=== PATIENT | female | born 1980 | race Caucasian/White ===

== ENCOUNTER 2017-10-24 09:32 | Emergency (ER) | payer OTHER ==
--- NOTE | 2017-10-24 10:12 | EDPHYS ---
Physician Documentation [facility] Name: Celi Ortez Age: 37 yrs Sex: Female : 1980 Arrival Date: 10/24/2017 Time: 09:40 Bed 13 Private MD: ED Physician Curtis Abreu HPI: 10/24 10:06 This 37 yrs old Female presents to ER via Ambulatory with complaints of pm1 abscess. 10:06 The patient presents with an abscess of the chest. Description: The affected area is pm1 small, draining. Onset: The symptoms/episode began/occurred this morning. Possible cause(s): unknown. Associated signs and symptoms: Pertinent positives: drainage, Pertinent negatives: fever. Modifying factors: the symptoms are alleviated by nothing, the symptoms are aggravated by touching. Severity of symptoms: in the emergency department the symptoms have improved. The patient has not experienced similar symptoms in the past. The patient has not recently seen a physician. 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 - Social history:: Smoking status: Patient uses tobacco products, smokes one pack cigarettes per day. ROS: 10:06 Constitutional: Negative for fever, chills, and weight loss, Eyes: Negative for injury, pm1 pain, redness, and discharge, ENT: Negative for injury, pain, and discharge, Neck: Negative for injury, pain, and swelling, Cardiovascular: Negative for chest pain, palpitations, and edema, Respiratory: Negative for shortness of breath, cough, wheezing, and pleuritic chest pain, Abdomen/GI: Negative for abdominal pain, nausea, vomiting, diarrhea, and constipation, Back: Negative for injury and pain, MS/Extremity: Negative for injury and deformity. 10:06 Neuro: Negative for headache, weakness, numbness, tingling, and seizure. 10:06 Skin: Positive for abscess, of the xyphoid area. Exam: 10:06 Constitutional: This is a well developed, well nourished patient who is awake, alert, pm1 and in no acute distress. Head/Face: Normocephalic, atraumatic. Chest/axilla: Normal chest wall appearance and motion. Nontender with no deformity. No lesions are appreciated. Cardiovascular: Regular rate and rhythm with a normal S1 and S2. No gallops, murmurs, or rubs. No pulse deficits. Respiratory: Lungs have equal breath sounds bilaterally, clear to auscultation and percussion. No rales, rhonchi or wheezes noted. No increased work of breathing, no retractions or nasal flaring. Abdomen/GI: Soft, non-tender, with normal bowel sounds. No distension or tympany. No guarding or rebound. No evidence of tenderness throughout. Back: No spinal tenderness. No costovertebral tenderness. Full range of motion. 10:06 Skin: Appearance: normal except for affected area, abscess, that is small, no surrounding cellulitis, pointing or fluctuance. No drainage present, cellulitis, is not appreciated. 10:06 Neuro: Orientation: is normal, Motor: moves all fours. 10:06 Skin: BB RN instructional aide. pm1 Vital Signs: 09:48 BP 144 / 70; Pulse 100; Resp 19; Temp 97.6(TE); Pulse Ox 100% on R/A; Weight 47.85 kg rb1 (R); Height 5 ft. 0 in. (152.40 cm) (R); Pain 5/10; 10:30 BP 144 / 77; Pulse 81; Resp 17; Pulse Ox 100% on R/A; rb1 09:48 Body Mass Index 20.60 (47.85 kg, 152.40 cm) rb1 MDM: 09:54 Patient medically screened. pm1 10:11 Data reviewed: vital signs. Data interpreted: Pulse oximetry: on room air is 100 %. pm1 Interpretation: normal. Counseling: I had a detailed discussion with the patient and/or guardian regarding: the historical points, exam findings, and any diagnostic results supporting the discharge/admit diagnosis, the need for outpatient follow up, to return to the emergency department if symptoms worsen or persist or if there are any questions or concerns that arise at home. 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 Exp: rb1 01/22/2020. Lot #: [id number]. } Route: IM; Site: right deltoid; Disposition: 14:03 Co-signature as Attending Physician, Curtis Abreu MD. rn Disposition: 10/24/17 10:11 Discharged to Home. Impression: Cutaneous abscess of chest wall. - Condition is Stable. - Discharge Instructions: Abscess. - Prescriptions for Diclofenac Sodium 75 mg Oral Tablet Sustained Release - take 1 tablet by ORAL route 2 times per day; 30 tablet. Bactrim DS 800- 160 mg Oral Tablet - take 1 tablet by ORAL route every 12 hours for 10 days; 20 tablet. - Medication Reconciliation Form, Thank You Letter, Antibiotic Education form. - Follow up: Emergency Department; When: As needed; Reason: Worsening of condition. Follow up: Private Physician; When: 2 - 3 days; Reason: Recheck today's complaints, Continuance of care, Re-evaluation by your physician. - Problem is new. - Symptoms have improved. Signatures: Curtis Abreu MD MD rn Phyllis Cardenas RN RN rb1 Eric Nielson, CCO & PRESIDENT CCO & PRESIDENT pm1 Corrections: (The following items were deleted from the chart) 10:34 10:11 10/24/2017 10:11 Discharged to Home. Impression: Cutaneous abscess of chest wall. rb1 Condition is Stable. Forms are Medication Reconciliation Form, Thank You Letter, Antibiotic Education, Prescription Opioid Use. Follow up: Emergency Department; When: As needed; Reason: Worsening of condition. Follow up: Private Physician; When: 2 - 3 days; Reason: Recheck today's complaints, Continuance of care, Re-evaluation by your physician. Problem is new. Symptoms have improved. pm1
--- NOTE | 2017-10-24 10:12 | ER ---
Nurse's Notes [facility] Name: Celi Ortez Age: 37 yrs Sex: Female : 1980 Arrival Date: 10/24/2017 Time: 09:40 Bed 13 Private MD: Diagnosis: Cutaneous abscess of chest wall Presentation: 10/24 09:48 Presenting complaint: Patient states: I have a knot in the crease of my right breast, rb1 I'm not sure if it is a pimple or what. This morning it popped and pus came out.". Transition of care: patient was not received from another setting of care. Onset of symptoms was October 23, 2017. Initial Sepsis Screen: Does the patient meet any 2 criteria? No. Patient's initial sepsis screen is negative. Does the patient have a suspected source of infection? No. Patient's initial sepsis screen is negative. Care prior to arrival: None. 09:48 Method Of Arrival: Ambulatory rb1 09:48 Acuity: AMY 4 rb1 Triage Assessment: 09:48 General: Appears in no apparent distress. comfortable, Behavior is calm, cooperative, rb1 Denies fever. Pain: Complains of pain in xyphoid area Pain currently is 5 out of 10 on a pain scale. Pain began 1 day ago. Neuro: Level of Consciousness is awake, alert, obeys commands, Oriented to person, place, time, situation. Cardiovascular: Capillary refill < 3 seconds is brisk in bilateral fingers. Respiratory: Airway is patent Respiratory effort is even, unlabored, Respiratory pattern is regular, symmetrical. GI: Reports diarrhea, nausea, vomiting, Pt. is going through withdrawals from synthetic. : No signs and/or symptoms were reported regarding the genitourinary system. Derm: Skin is pink, warm \\T\\ dry. looks like a pimple like lesion. 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 - Social history:: Smoking status: Patient uses tobacco products, smokes one pack cigarettes per day. Screenin:48 Abuse screen: Denies threats or abuse. Nutritional screening: No deficits noted. rb1 Tuberculosis screening: No symptoms or risk factors identified. Fall Risk None identified. Assessment: 09:48 General: See triage assessment. rb1 10:30 Reassessment: Patient appears in no apparent distress at this time. Patient and/or rb1 family updated on plan of care and expected duration. Pain level reassessed. Patient is alert, oriented x 3, equal unlabored respirations, skin warm/dry/pink. Vital Signs: 09:48 BP 144 / 70; Pulse 100; Resp 19; Temp 97.6(TE); Pulse Ox 100% on R/A; Weight 47.85 kg rb1 (R); Height 5 ft. 0 in. (152.40 cm) (R); Pain 5/10; 10:30 BP 144 / 77; Pulse 81; Resp 17; Pulse Ox 100% on R/A; rb1 09:48 Body Mass Index 20.60 (47.85 kg, 152.40 cm) rb1 ED Course: 09:40 Patient arrived in ED. sb2 09:48 Arm band placed on right wrist. rb1 09:48 Patient has correct armband on for positive identification. Bed in low position. Call rb1 light in reach. Side rails up X 1. Pulse ox on. NIBP on. 09:51 Eric Nielson NP is PHCP. pm1 09:52 Curtis Abreu MD is Attending Physician. pm1 09:55 Phyllis Cardenas RN is Primary Nurse. rb1 10:02 Triage completed. rb1 10:34 No provider procedures requiring assistance completed. Patient did not have IV access rb1 during this emergency room visit. 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 Exp: rb1 01/22/2020. Lot #: [id number]. } Route: IM; Site: right deltoid; Outcome: 10:11 Discharge ordered by . pm1 10:34 Patient left the ED. rb1 10:34 Discharged to home ambulatory. rb1 10:34 Condition: stable 10:34 Discharge instructions given to patient, Instructed on discharge instructions, follow up and referral plans. medication usage, Demonstrated understanding of instructions, follow-up care, medications, Prescriptions given X 2. Signatures: Phyllis Cardenas RN RN rb1 Eric Nielson NP FENCE INSTALLER HELPER pm1 Corrian Beauchamp sb2
[2017-10-24] MEDS ORDERED: TETANUS & DIPHTHERIA TOX,ADULT 0.5 ML VIAL ONE (10:22)
== END 2017-10-24 10:34 | disposition home or self-care (01) ==
LOC: ER 09:32
DX: L02.213 Cutaneous abscess of chest wall (principal); F17.210 Nicotine dependence, cigarettes, uncomplicated; Z23 Encounter for immunization
CPT/HCPCS: 90714; 99283

== ENCOUNTER 2018-06-19 13:20 | Emergency (ER) | payer OTHER ==
--- NOTE | 2018-06-19 15:31 | ER ---
Nurse's Notes [facility] Name: Celi Ortez Age: 38 yrs Sex: Female : 1980 Arrival Date: 06/19/2018 Time: 13:21 Bed 17 Private MD: None, None Diagnosis: Acute bronchitis Presentation: 06/19 14:02 Presenting complaint: Patient states: cough, headache, fatigue x 1 day. Motrin taken sv last night. Transition of care: patient was not received from another setting of care. Onset of symptoms was June 18, 2018. Care prior to arrival: None. 14:02 Method Of Arrival: Ambulatory sv 14:02 Acuity: AMY 4 sv 15:57 Risk Assessment: Do you want to hurt yourself or someone else? Patient reports no ss desire to harm self or others. Initial Sepsis Screen: Does the patient meet any 2 criteria? No. Patient's initial sepsis screen is negative. Does the patient have a suspected source of infection? No. Patient's initial sepsis screen is negative. Triage Assessment: 14:06 General: Appears in no apparent distress. uncomfortable, Behavior is calm, cooperative, sv appropriate for age. Pain: Complains of pain in throat Pain currently is 7 out of 10 on a pain scale. Neuro: Level of Consciousness is awake, alert, obeys commands, Oriented to person, place, time, situation, Moves all extremities. Full function Gait is steady, Speech is normal. Respiratory: Respiratory effort is even, unlabored, Respiratory pattern is regular, symmetrical. Historical: - Allergies: 14:02 No Known Allergies; sv - PMHx: 14:02 COLLAPSED LUNG; MRSA; scoliosis; staph; sv - PSHx: 14:02 Tubal ligation; chest tube; sv - Immunization history:: Flu vaccine is not up to date. - Social history:: Smoking status: Patient uses tobacco products, smokes one-half pack cigarettes per day. - Ebola Screening: : No symptoms or risks identified at this time. Screenin:45 Abuse screen: Denies threats or abuse. Denies injuries from another. Nutritional ss screening: No deficits noted. Tuberculosis screening: Never had TB. Fall Risk None identified. Assessment: 14:45 General: Appears uncomfortable, Behavior is calm, cooperative. Pain: Complains of pain ss in head in entire Pain currently is 7 out of 10 on a pain scale. Neuro: Level of Consciousness is awake, alert, obeys commands, Oriented to person, place, time, situation. Cardiovascular: Capillary refill < 3 seconds is brisk in bilateral fingers. Respiratory: Reports cough that is non-productive, hacking, persistent Airway is patent Respiratory effort is even, unlabored, Respiratory pattern is regular, symmetrical. GI: Patient currently denies diarrhea, nausea, vomiting. EENT: Nares are clear Throat is clear. Derm: Skin is intact, is healthy with good turgor, Skin is pink, warm \T\ dry. normal. Vital Signs: 14:03 BP 132 / 87; Pulse 84; Resp 20; Temp 97.8; Pulse Ox 100% ; Weight 56.7 kg; Height 5 ft. sv 0 in. (152.40 cm); Pain 7/10; 14:03 Body Mass Index 24.41 (56.70 kg, 152.40 cm) sv ED Course: 13:21 Patient arrived in ED. sb2 13:21 None, None is Private Physician. sb2 14:02 Triage completed. sv 14:03 Arm band placed on Patient placed in waiting room, Patient notified of wait time. sv 14:43 Nahum Hall PA is PHCP. [facility] 14:43 Joel Noyola MD is Attending Physician. [facility] 14:45 Patient has correct armband on for positive identification. Bed in low position. Call ss light in reach. 15:21 Michelle Fried, DONOVAN is Primary Nurse. ss 15:55 No provider procedures requiring assistance completed. Patient did not have IV access ss during this emergency room visit. Administered Medications: No medications were administered Outcome: 15:30 Discharge ordered by . [facility] 15:55 Discharged to home ambulatory. ss 15:55 Condition: good 15:55 Discharge instructions given to patient, family, Instructed on discharge instructions, follow up and referral plans. medication usage, Demonstrated understanding of instructions, follow-up care, medications, Prescriptions given X 4. 15:57 Patient left the ED. ss Signatures: Lorelei Allen, RN RN Nahum Hall PA PA jmm Smirch, Shelby, RN RN Corrina Beauchamp sb2
--- NOTE | 2018-06-19 15:31 | EDPHYS ---
Physician Documentation [facility] Name: Celi Otrez Age: 38 yrs Sex: Female : 1980 Arrival Date: 06/19/2018 Time: 13:21 Bed 17 Private MD: None, None ED Physician Joel Noyola HPI: 06/19 15:25 This 38 yrs old Female presents to ER via Ambulatory with complaints of Flu jmm Symptoms. 15:25 The patient or guardian reports cough. Onset: The symptoms/episode began/occurred jmm gradually, 5 day(s) ago. Modifying factors: The symptoms are alleviated by nothing. the symptoms are aggravated by nothing. Associated signs and symptoms: Pertinent positives: rhinorrhea, sore throat. This is a 38 year old female with a history of scoliosis that presents to the ED with cough, congestion, sore throat beginning 5 days ago. Mother has similar symptoms. . Historical: - Allergies: 14:02 No Known Allergies; sv - PMHx: 14:02 COLLAPSED LUNG; MRSA; scoliosis; staph; sv - PSHx: 14:02 Tubal ligation; chest tube; sv - Immunization history:: Flu vaccine is not up to date. - Social history:: Smoking status: Patient uses tobacco products, smokes one-half pack cigarettes per day. - Ebola Screening: : No symptoms or risks identified at this time. ROS: 15:25 Cardiovascular: Negative for chest pain, palpitations, and edema. jmm 15:25 Constitutional: Positive for body aches, chills. 15:25 ENT: Positive for ear pain, sore throat. 15:25 Respiratory: Positive for cough. 15:25 All other systems are negative. Exam: 15:25 Head/Face: atraumatic. Eyes: EOMI, no conjunctival erythema appreciated ENT: Moist jmm Mucus Membranes Neck: Trachea midline, Supple Chest/axilla: Normal chest wall appearance and motion. 15:25 Constitutional: The patient appears in no acute distress, alert, awake. 15:25 ENT: TM's: are normal, Posterior pharynx: erythema, that is mild. 15:25 Neck: ROM/movement: is normal. 15:25 Cardiovascular: Rate: normal, Rhythm: regular, Pulses: no pulse deficits are appreciated. 15:25 Respiratory: the patient does not display signs of respiratory distress, Respirations: normal, Breath sounds: are clear throughout. 15:25 Abdomen/GI: 15:25 Back: ROM is normal. 15:25 Musculoskeletal/extremity: ROM: intact in all extremities. 15:25 Skin: Appearance: Color: normal in color. 15:25 Neuro: Orientation: is normal, Mentation: is normal, Memory: is normal. Vital Signs: 14:03 BP 132 / 87; Pulse 84; Resp 20; Temp 97.8; Pulse Ox 100% ; Weight 56.7 kg; Height 5 ft. sv 0 in. (152.40 cm); Pain 7/10; 14:03 Body Mass Index 24.41 (56.70 kg, 152.40 cm) sv MDM: 15:21 Patient medically screened. [facility] 15:27 Data reviewed: vital signs, nurses notes, lab test result(s). Counseling: I had a jmm detailed discussion with the patient and/or guardian regarding: the historical points, exam findings, and any diagnostic results supporting the discharge/admit diagnosis, lab results, radiology results, the need for outpatient follow up, to return to the emergency department if symptoms worsen or persist or if there are any questions or concerns that arise at home. ED course: Patient is alert and non toxic in appearance in the ED. Shows no signs of resp distress. Patient is advised to follow up with Dr. Tilley and otherwise given strict return precautions. Patient understood and agrees with the plan of care. . 06/19 14:10 Order name: Influenza Screen (A ; Complete Time: 15:21 EDAZ 06/19 14:10 Order name: Group A Streptococcus Rapid Sc; Complete Time: 15:21 EDAZ 06/19 14:31 Order name: Throat Culture EDMS Administered Medications: No medications were administered Disposition: 16:57 Co-signature as Attending Physician, Joel Noyola MD. ma2 Disposition: 06/19/18 15:30 Discharged to Home. Impression: Acute bronchitis. - Condition is Stable. - Discharge Instructions: Acute Bronchitis, Adult. - Prescriptions for Prednisone 20 mg Oral Tablet - take 3 tablet by ORAL route once daily for 5 days; 15 tablet. Zithromax Z- Phill 250 mg Oral Tablet - take 1 tablet by ORAL route as directed for 5 days Day 1 - take two (2) tablets one time. Day 2, 3, 4 , 5 take one (1) tablet once daily.; 6 tablet. Albuterol Sulfate 90 mcg/actuation - inhale 1-2 puff by INHALATION route every 4-6 hours; 1 Inhaler. - Medication Reconciliation Form, Thank You Letter, Antibiotic Education, Prescription Opioid Use form. - Follow up: Private Physician; When: 2 - 3 days; Reason: Recheck today's complaints, Continuance of care, Re-evaluation by your physician. Signatures: Dispatcher [employer] Lorelei Corbin, DONOVAN RN Nahum Real PA PA jmm Smirch, Shelby, RN RN ss Joel Noyola MD MD ma2 Corrections: (The following items were deleted from the chart) 15:57 15:30 06/19/2018 15:30 Discharged to Home. Impression: Acute bronchitis. Condition is ss Stable. Forms are Medication Reconciliation Form, Thank You Letter, Antibiotic Education, Prescription Opioid Use. Follow up: Private Physician; When: 2 - 3 days; Reason: Recheck today's complaints, Continuance of care, Re-evaluation by your physician. zayra
== END 2018-06-19 15:57 | disposition home or self-care (01) ==
LOC: ER 13:20
DX: J20.9 Acute bronchitis, unspecified (principal); M41.9 Scoliosis, unspecified; F17.210 Nicotine dependence, cigarettes, uncomplicated
CPT/HCPCS: 87070; 87081; 87804; 99282

== ENCOUNTER 2019-04-05 08:16 | Emergency (ER) | payer OTHER, SELFPAY ==
[2019-04-05 09:40] LABS: Absolute Lymphocytes (CBC) 2.6 K/uL (0.7-4.9); Basophils % 0.6 % (0-1.3); Hematocrit 39.7 % (36.0-45.0); MPV 7.4 fL (7.6-11.3); RBC Red Blood Cell Count 4.39 M/uL (3.86-4.86)
[2019-04-05 09:53] LABS: ALT/SGPT 23 U/L (12-78); AST/SGOT 16 U/L (15-37); BUN Blood Urea Nitrogen 10 mg/dL (7-18); Bicarbonate 25 mmol/L (21-32); Glucose Level 95 mg/dL (74-106); Potassium 3.7 mmol/L (3.5-5.1); Sodium Level 138 mmol/L (136-145)
[2019-04-05 09:54] LABS: Albumin 3.9 g/dL (3.4-5.0); Alkaline Phosphatase 61 U/L (45-117); Bilirubin Direct 0.2 mg/dL (0-0.2); Bilirubin Total 0.5 mg/dL (0.2-1.0); Magnesium 1.9 mg/dL (1.8-2.4); NT PRO-BNP 90 pg/mL (<125); Protein, Total 7.3 g/dL (6.4-8.2); Troponin (Emerg Dept Use Only) < 0.02 ng/mL (0.0-0.045)
[2019-04-05] MEDS ORDERED: ONDANSETRON 4 MG/2 ML VIAL ONE (10:13)
[2019-04-05] MEDS ORDERED: MORPHINE 4 MG/ML SYR ONE (10:13)
[2019-04-05 10:16] LABS: Protime INR 0.93
[2019-04-05] MEDS ORDERED: MORPHINE 2 MG/ML SYR ONE (10:24)
--- NOTE | 2019-04-05 10:33 | RAD REPORT ---
EXAM DESCRIPTION: RAD - Chest Single View - 04/05/2019 9:51 am CLINICAL HISTORY: Left-sided chest pain COMPARISON: January 2011 chest film, CT trauma study October 2013 TECHNIQUE: AP portable chest image was obtained 0948 hours . FINDINGS: Lungs are clear. Heart and vasculature are normal. No measurable pleural effusion and no p neumothorax. No acute bony abnormality seen. No acute aortic findings suspected. IMPRESSION: No acute cardiopulmonary process. No suspicious interval changes.
[2019-04-05 10:46] LABS: Urine Blood TRACE (NEG); Urine Glucose NEGATIVE (NEG); Urine Protein NEGATIVE (NEG); Urine Specific Gravity 1.015 (1.005-1.030); Urine pH 7.5 (5.0-7.0)
--- NOTE | 2019-04-05 11:35 | EDPHYS ---
Physician Documentation [facility] Name: Celi Ortez Age: 39 yrs Sex: Female : 1980 Arrival Date: 04/05/2019 Time: 08:18 Bed 7 Private MD: ED Physician Jeff Kemp HPI: 04/05 09:01 This 39 yrs old Female presents to ER via Ambulatory with complaints of Chest jm Pain. 09:01 The patient or guardian reports chest pain that is located primarily in the substernal [facility] area. The pain does not radiate. Associated signs and symptoms: Pertinent positives: cough, Pertinent negatives: abdominal pain. The chest pain is described as sharp. Duration: The patient or guardian reports a single episode, that is still ongoing. Modifying factors: The symptoms are alleviated by nothing. the symptoms are aggravated by deep breath. This is a 39 year old female with no chronic medical conditions that presents to the ED with complaints of cough for the past 2 days with chest pain beginning this morning at around 6 am. Described as sharp. Worsened with deep breath and movement of the left arm. Denies hx of CAD, admits to tobacco use. . Historical: - Allergies: 08:25 No Known Allergies; hb - PMHx: 08:25 COLLAPSED LUNG; MRSA; scoliosis; staph; hb - PSHx: 08:25 Tubal ligation; chest tube; hb - Immunization history:: Adult Immunizations up to date. - Social history:: Smoking status: Patient uses tobacco products, smokes one pack cigarettes per day. - Ebola Screening: : No symptoms or risks identified at this time. ROS: 09:01 Constitutional: Negative for fever, chills, and weight loss. jmm 09:01 Abdomen/GI: Negative for abdominal pain, nausea, vomiting, diarrhea, and constipation, Back: Negative for injury and pain. 09:01 Cardiovascular: Positive for chest pain. 09:01 Respiratory: Positive for cough. 09:01 All other systems are negative. Exam: 09:01 Constitutional: This is a well developed, well nourished patient who is awake, alert, jmm and in no acute distress. Head/Face: atraumatic. Eyes: EOMI, no conjunctival erythema appreciated ENT: Moist Mucus Membranes Neck: Trachea midline, Supple 09:01 Chest/axilla: Inspection: normal, Palpation: tenderness, that is mild, of the left breast, that partially reproduces the patient's complaints. 09:01 Cardiovascular: Rate: normal, Rhythm: regular. 09:01 Respiratory: the patient does not display signs of respiratory distress, Respirations: normal, Breath sounds: are clear throughout. 09:01 Abdomen/GI: Inspection: abdomen appears normal, Bowel sounds: normal. 09:01 Back: ROM is normal. 09:01 Musculoskeletal/extremity: ROM: intact in all extremities, full active range of motion. 09:01 Skin: Appearance: Color: normal in color, pink. 09:01 Neuro: Orientation: is normal, Mentation: is normal, Memory: is normal, appropriate for stated age. 09:01 Psych: Behavior/mood is pleasant, cooperative. Vital Signs: 08:25 BP 128 / 76; Pulse 85; Resp 16; Temp 97.2; Pulse Ox 100% on R/A; Weight 58.06 kg; hb Height 5 ft. (152.40 cm); Pain 8/10; 08:39 BP 111 / 51; Pulse 72; Resp 14; Pulse Ox 100% on R/A; Pain 8/10; sg 09:34 BP 101 / 56; Pulse 69; Resp 17; Pulse Ox 98% ; sv 10:01 BP 93 / 51; Pulse 75; Resp 16; Temp 97.2; Pulse Ox 100% on R/A; sg 10:15 BP 104 / 57; Pulse 53; Resp 13; Pulse Ox 100% ; sv 11:08 BP 99 / 60; Pulse 54 MON; Resp 14; Pulse Ox 100% on R/A; sv 11:52 BP 100 / 60; Pulse 55; Resp 16; Pulse Ox 99% ; sv 08:25 Body Mass Index 25.00 (58.06 kg, 152.40 cm) hb 11:08 Sinus bradycardia sv MDM: 09:01 Patient medically screened. doris 11:32 Data reviewed: vital signs, nurses notes. Counseling: I had a detailed discussion with zayra the patient and/or guardian regarding: the historical points, exam findings, and any diagnostic results supporting the discharge/admit diagnosis, lab results, radiology results, the need for outpatient follow up, to return to the emergency department if symptoms worsen or persist or if there are any questions or concerns that arise at home. ED course: HEART SCORE = 2. D-DIMER NEGATIVE. PERC NEGATIVE. Patient advised to follow up with cardiology for reevaluation. Patient understood and agrees with the plan of care. . 04/05 09:08 Order name: Basic Metabolic Panel; Complete Time: 10:02 [facility] 04/05 09:08 Order name: CBC with Diff; Complete Time: 10:02 [facility] 04/05 09:08 Order name: LFT's; Complete Time: 10:02 [facility] 04/05 09:08 Order name: Magnesium; Complete Time: 10:02 [facility] 04/05 09:08 Order name: NT PRO-BNP; Complete Time: 10:02 [facility] 04/05 09:08 Order name: PT-INR; Complete Time: 10:26 [facility] 04/05 09:08 Order name: Troponin (emerg Dept Use Only); Complete Time: 10:02 [facility] 04/05 09:08 Order name: XRAY Chest (1 view); Complete Time: 10:39 [facility] 04/05 09:08 Order name: EKG; Complete Time: 09:09 [facility] 04/05 09:08 Order name: Cardiac monitoring; Complete Time: 09:24 [facility] 04/05 09:08 Order name: D-Dimer; Complete Time: 10:26 [facility] 04/05 09:36 Order name: Urine Dipstick--Ancillary (enter results); Complete Time: 10:49 04/05 09:08 Order name: EKG - Nurse/Tech; Complete Time: 09:28 [facility] 04/05 09:08 Order name: IV Saline Lock; Complete Time: 09:28 [facility] 04/05 09:08 Order name: Labs collected and sent; Complete Time: 09:28 [facility] 04/05 09:08 Order name: O2 Per Protocol; Complete Time: 09:28 [facility] 04/05 09:08 Order name: O2 Sat Monitoring; Complete Time: 09:28 [facility] 04/05 09:13 Order name: Urine Test (obtain specimen); Complete Time: 09:22 jm Administered Medications: 10:18 Drug: Zofran 4 mg Route: IVP; Site: right antecubital; sv 11:00 Follow up: Response: No adverse reaction sv 10:29 Drug: morphine 2 mg {Note: RASS2.} Route: IVP; Site: right antecubital; sv 11:00 Follow up: Response: No adverse reaction; RASS: Restless (+1) sv Disposition: 13:30 Co-signature as Attending Physician, Jeff Kemp MD I agree with the assessment and [facility] plan of care. Disposition: 04/05/19 11:34 Discharged to Home. Impression: Chest pain, unspecified. - Condition is Stable. - Discharge Instructions: Nonspecific Chest Pain. - Prescriptions for Ibuprofen 800 mg Oral Tablet - take 1 tablet by ORAL route every 8 hours As needed take with food; 30 tablet. - Medication Reconciliation Form, Thank You Letter, Antibiotic Education, Prescription Opioid Use form. - Follow up: Private Physician; When: 2 - 3 days; Reason: Recheck today's complaints, Continuance of care, Re-evaluation by your physician. Signatures: Dispatcher [employer] Lorelei Corbin RN RN sv Anderson, Corey, MD MD cha Mickail, Joel, PA PA jmm Baxter, Heather RN DONOVAN Corrections: (The following items were deleted from the chart) 11:52 11:34 04/05/2019 11:34 Discharged to Home. Impression: Chest pain, unspecified. sv Condition is Stable. Forms are Medication Reconciliation Form, Thank You Letter, Antibiotic Education, Prescription Opioid Use. Follow up: Private Physician; When: 2 - 3 days; Reason: Recheck today's complaints, Continuance of care, Re-evaluation by your physician. zayra
--- NOTE | 2019-04-05 11:35 | ER ---
Nurse's Notes [facility] Name: Celi Ortez Age: 39 yrs Sex: Female : 1980 Arrival Date: 04/05/2019 Time: 08:18 Bed 7 Private MD: Diagnosis: Chest pain, unspecified Presentation: 04/05 08:23 Presenting complaint: Sharp left sided chest pain that woke her from sleep at 0600. hb Pain is worse with inspiration. Transition of care: patient was not received from another setting of care. Onset of symptoms was April 05, 2019. Risk Assessment: Do you want to hurt yourself or someone else? Patient reports no desire to harm self or others. Initial Sepsis Screen: Does the patient meet any 2 criteria? No. Patient's initial sepsis screen is negative. Does the patient have a suspected source of infection? No. Patient's initial sepsis screen is negative. Care prior to arrival: None. 08:23 Method Of Arrival: Ambulatory hb 08:23 Acuity: AMY 3 hb Historical: - Allergies: 08:25 No Known Allergies; hb - PMHx: 08:25 COLLAPSED LUNG; MRSA; scoliosis; staph; hb - PSHx: 08:25 Tubal ligation; chest tube; hb - Immunization history:: Adult Immunizations up to date. - Social history:: Smoking status: Patient uses tobacco products, smokes one pack cigarettes per day. - Ebola Screening: : No symptoms or risks identified at this time. Screenin:30 Abuse screen: Denies threats or abuse. Denies injuries from another. Nutritional sg screening: No deficits noted. Tuberculosis screening: No symptoms or risk factors identified. Fall Risk None identified. Assessment: 08:31 General: Appears in no apparent distress. well developed, well nourished, Behavior is sg cooperative, appropriate for age. Pain: Complains of pain in anterior aspect of left upper chest Pain does not radiate. Quality of pain is described as aching, sharp, stabbing, Aggravated by deep breathing. Neuro: Level of Consciousness is awake, alert, obeys commands, Oriented to person, place, time, Mold Mover are equal bilaterally Moves all extremities. Gait is steady, Speech is normal, Facial symmetry appears normal, Pupils are PERRLA. Cardiovascular: Capillary refill is brisk in bilateral fingers Patient's skin is warm and dry. Chest pain is described as mild, "mild but woke me up while I was sleeping". quality is sharp, is located in left anterior chest wall. Respiratory: Reports cough that is persistent pain with respiration Airway is patent Respiratory effort is even, unlabored, Respiratory pattern is regular, symmetrical. GI: Abdomen is round non-distended. : No signs and/or symptoms were reported regarding the genitourinary system. EENT: No signs and/or symptoms were reported regarding the EENT system. Derm: Skin is pink, warm \\T\\ dry. Musculoskeletal: Circulation, motion, and sensation intact. Range of motion: intact in all extremities, Swelling absent. 09:00 Reassessment: Patient appears in no apparent distress at this time. No changes from sv previously documented assessment. Patient and/or family updated on plan of care and expected duration. Pain level reassessed. Patient is alert, oriented x 3, equal unlabored respirations, skin warm/dry/pink. 10:00 Reassessment: pt family requesting pain medication for patient at this time. pt reports sg the pain is returning is 9/10, same sensation and location as earlier this morning, awaiting new orders at this time, awaiting results. 10:18 Reassessment: Patient appears in no apparent distress at this time. Patient and/or sv family updated on plan of care and expected duration. Pain level reassessed. Patient is alert, oriented x 3, equal unlabored respirations, skin warm/dry/pink. 11:51 Reassessment: Patient appears in no apparent distress at this time. Patient and/or sv family updated on plan of care and expected duration. Pain level reassessed. Patient is alert, oriented x 3, equal unlabored respirations, skin warm/dry/pink. Vital Signs: 08:25 BP 128 / 76; Pulse 85; Resp 16; Temp 97.2; Pulse Ox 100% on R/A; Weight 58.06 kg; hb Height 5 ft. (152.40 cm); Pain 8/10; 08:39 BP 111 / 51; Pulse 72; Resp 14; Pulse Ox 100% on R/A; Pain 8/10; sg 09:34 BP 101 / 56; Pulse 69; Resp 17; Pulse Ox 98% ; sv 10:01 BP 93 / 51; Pulse 75; Resp 16; Temp 97.2; Pulse Ox 100% on R/A; sg 10:15 BP 104 / 57; Pulse 53; Resp 13; Pulse Ox 100% ; sv 11:08 BP 99 / 60; Pulse 54 MON; Resp 14; Pulse Ox 100% on R/A; sv 11:52 BP 100 / 60; Pulse 55; Resp 16; Pulse Ox 99% ; sv 08:25 Body Mass Index 25.00 (58.06 kg, 152.40 cm) hb 11:08 Sinus bradycardia sv ED Course: 08:18 Patient arrived in ED. as 08:24 Triage completed. hb 08:25 Arm band placed on. hb 08:28 Patient has correct armband on for positive identification. Placed in gown. Bed in low mh5 position. Call light in reach. Adult w/ patient. Warm blanket given. hall monitor on. Pulse ox on. NIBP on. 08:30 No provider procedures requiring assistance completed. Patient maintains SpO2 sg saturation greater than 95% on room air. 08:34 Awaiting ED provider evaluation. sg 08:38 EKG done, by biomedical equipment tech. reviewed by Jfef Kemp MD. at1 08:47 Nahum Hall PA is PHCP. jmm 08:47 Jeff Kemp MD is Attending Physician. jmm 09:13 Lorelei Allen, DONOVAN is Primary Nurse. sv 09:20 Inserted saline lock: 22 gauge in right forearm, using aseptic technique. ,using sv aseptic technique. diffusics Blood collected. Flushed right forearm with 5 ml normal saline. 09:21 Urine collected: clean catch specimen, clear. mh5 09:37 Awaiting lab results, Awaiting for x-ray. sv 09:37 Urine Dipstick--Ancillary (enter results) Sent. sv 09:48 Awaiting lab results, Awaiting radiology results. sg 09:52 XRAY Chest (1 view) In Process Unspecified. EDMS 11:51 IV discontinued, intact, bleeding controlled, No redness/swelling at site. Pressure sv dressing applied. Administered Medications: 10:18 Drug: Zofran 4 mg Route: IVP; Site: right antecubital; sv 11:00 Follow up: Response: No adverse reaction sv 10:29 Drug: morphine 2 mg {Note: RASS2.} Route: IVP; Site: right antecubital; sv 11:00 Follow up: Response: No adverse reaction; RASS: Restless (+1) sv Outcome: 11:34 Discharge ordered by . zayra 11:51 Discharged to home ambulatory, with family. sv 11:51 Condition: stable 11:51 Discharge instructions given to patient, Instructed on discharge instructions, follow up and referral plans. medication usage, Demonstrated understanding of instructions, follow-up care, medications, Prescriptions given X 1. 11:52 Patient left the ED. sv Signatures: Dispatcher [employer] Lorelei Corbin, Cabrera Jang RN, RN RN sg Mickail, Joel, Kimberly Chawla Amanda, receivables specialist EKG Tat1 Marcelina Becker, Cristina Cortes RN 5
--- NOTE | 2019-04-05 12:12 | EKG ---
Test Date: 2019-04-05 Test Time: 08:22:53 Chief Engineering Division: TREVA MEASUREMENT RESULTS: Intervals: Rate: 78 [place]: 150 QRSD: 82 QT: 370 QTc: 421 [place]: P: 76 [place]: 150 QRS: 73 T: 66 INTERPRETIVE STATEMENTS: Normal sinus rhythm with sinus arrhythmia Normal ECG No previous ECG available for comparison Electronically Signed On 04-05-19 12:10:14 CDT by Carlos Jane
== END 2019-04-05 11:52 | disposition home or self-care (01) ==
LOC: ER 08:16
DX: R07.9 Chest pain, unspecified (principal); F17.210 Nicotine dependence, cigarettes, uncomplicated
CPT/HCPCS: 36415; 71045; 80048; 80076; 81003; 83735; 83880; 84484; 85025; 85379; 85610; 93005; 96374; 96375; 99285; J2270; J2405

== ENCOUNTER 2019-05-15 08:48 | Emergency (ER) | payer SELFPAY ==
[2019-05-15] MEDS ORDERED: CYCLOBENZAPRINE 10 MG TAB ONE (09:25)
[2019-05-15] MEDS ORDERED: BENZONATATE 100 MG CAP PO ONE (09:25)
[2019-05-15] MEDS ORDERED: IBUPROFEN 400 MG TAB ONE (09:26)
[2019-05-15] MEDS ORDERED: CODEINE 30MG/APAP 300MG TAB ONE (09:26)
--- NOTE | 2019-05-15 10:53 | RAD REPORT ---
EXAM DESCRIPTION: RAD - Chest Single View - 05/15/2019 9:43 am CLINICAL HISTORY: Cough and congestion, bilateral rib pain COMPARISON: April 05 TECHNIQUE: AP portable chest image was obtained 0940 hours . FINDINGS: Lungs are clear. Heart and vasculature are normal. No measurable pleural effusion and no p neumothorax. No acute bony abnormality seen. No acute aortic findings suspected. IMPRESSION: No acute cardiopulmonary process. No significant change from comparison.
--- NOTE | 2019-05-15 11:21 | EDPHYS ---
Physician Documentation [facility] Name: Celi Ortez Age: 39 yrs Sex: Female : 1980 Arrival Date: 05/15/2019 Time: 08:51 Bed 6 Private MD: ED Physician Jeffrey Montoya HPI: 05/15 10:25 This 39 yrs old Female presents to ER via Ambulatory with complaints of kdr Cough, Rib pain. 10:25 The patient or guardian reports cough, that is intermittent, described as moderate, kdr described as severe. Onset: The symptoms/episode began/occurred gradually, Since Thursday. Severity of symptoms: At their worst the symptoms were mild, moderate, in the emergency department the symptoms have improved, mildly. Modifying factors: The symptoms are alleviated by inhaler, albuterol, prescription meds, oral steroids. Associated signs and symptoms: The patient has no apparent associated signs or symptoms. The patient has not experienced similar symptoms in the past. The patient has not recently seen a physician. 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 - Social history:: Smoking status: Patient uses tobacco products, smokes one pack cigarettes per day. - Ebola Screening: : No symptoms or risks identified at this time. ROS: 10:25 Constitutional: Negative for fever, chills, and weight loss, Eyes: Negative for injury, kdr pain, redness, and discharge, ENT: Negative for injury, pain, and discharge, Neck: Negative for injury, pain, and swelling, Cardiovascular: Negative for cardiac chest pain, palpitations, and edema, Respiratory: Negative for shortness of breath, cough, wheezing, and pleuritic chest pain, Abdomen/GI: Negative for abdominal pain, nausea, vomiting, diarrhea, and constipation, Back: Negative for injury and pain, : Negative for injury, bleeding, discharge, and swelling, MS/Extremity: Negative for injury and deformity, Skin: Negative for injury, rash, and discoloration, Neuro: Negative for headache, weakness, numbness, tingling, and seizure activity. Psych: Negative for depression, anxiety, suicide ideation, homicidal ideation, and hallucinations, Allergy/Immunology: Negative for hives, rash, and allergies, Endocrine: Negative for neck swelling, polydipsia, polyuria, polyphagia, and marked weight changes, Hematologic/Lymphatic: Negative for swollen nodes, abnormal bleeding, and unusual bruising. 10:25 Cardiovascular: Positive for Negative for chest pain, edema, orthopnea, palpitations, paroxysmal nocturnal dyspnea. 10:25 Abdomen/GI: Positive for abdominal pain, Diffusely across upper abdomen. Exam: 10:25 Constitutional: This is a well developed, well nourished patient who is awake, alert, kdr and in no acute distress. Head/Face: Normocephalic, atraumatic. Eyes: Pupils equal round and reactive to light, extra-ocular motions intact. Lids and lashes normal. Conjunctiva and sclera are non-icteric and not injected. Cornea within normal limits. Periorbital areas with no swelling, redness, or edema. Neck: Trachea midline, no thyromegaly or masses palpated, and no cervical lymphadenopathy. Supple, full range of motion without nuchal rigidity, or vertebral point tenderness. No Meningismus. Chest/axilla: Normal chest wall appearance and motion. Nontender with no deformity. No lesions are appreciated. Cardiovascular: Regular rate and rhythm with a normal S1 and S2. No gallops, murmurs, or rubs. Normal PMI, no JVD. No pulse deficits. Respiratory: Lungs have equal breath sounds bilaterally, clear to auscultation and percussion. No rales, rhonchi or wheezes noted. No increased work of breathing, no retractions or nasal flaring. Abdomen/GI: Soft, non-tender, with normal bowel sounds. No distension or tympany. No guarding or rebound. No evidence of tenderness throughout. Back: No spinal tenderness. No costovertebral tenderness. Full range of motion. Skin: Warm, dry with normal turgor. Normal color with no rashes, no lesions, and no evidence of cellulitis. MS/ Extremity: Pulses equal, no cyanosis. Neurovascular intact. Full, normal range of motion. Neuro: Awake and alert, GCS 15, oriented to person, place, time, and situation. Cranial nerves II-XII grossly intact. Motor strength 5/5 in all extremities. Sensory grossly intact. Cerebellar exam normal. Normal gait. Psych: Awake, alert, with orientation to person, place and time. Behavior, mood, and affect are within normal limits. Vital Signs: 09:08 BP 107 / 63; Pulse 97; Resp 17 S; Temp 97.8(O); Pulse Ox 100% on R/A; Weight 52.16 kg jl7 (R); Height 5 ft. (152.40 cm) (R); Pain 7/10; 10:24 BP 101 / 57; Pulse 68; Resp 16 S; Pulse Ox 97% on R/A; jl7 11:37 BP 97 / 55; Pulse 81; Resp 17; Pulse Ox 97% on R/A; ae4 09:08 Body Mass Index 22.46 (52.16 kg, 152.40 cm) jl7 MDM: 10:25 Data reviewed: vital signs, nurses notes, lab test result(s), radiologic studies. kdr 11:20 Patient medically screened. kdr 11:24 ED course: The patient was stable in the ED and improved with the interventions given. kdr She was happy with the care provided and the plan for discharge and follow-up. 05/15 09:17 Order name: CXR XRAY; Complete Time: 11:18 kdr Administered Medications: 09:29 Drug: Tessalon Perle 200 mg Route: PO; ae4 10:15 Follow up: Response: No adverse reaction jl7 09:29 Drug: Tylenol #3 (300 mg-30 mg) 1 tablet Route: PO; ae4 10:15 Follow up: Response: No adverse reaction; Pain is decreased jl7 09:29 Drug: Flexeril 10 mg Route: PO; ae4 10:15 Follow up: Response: No adverse reaction; Pain is decreased jl7 10:55 Follow up: Response: Pain is decreased ae4 09:29 Drug: Ibuprofen 800 mg Route: PO; ae4 10:15 Follow up: Response: No adverse reaction; Pain is decreased jl7 10:55 Follow up: Response: Pain is decreased ae4 Disposition: 05/15/19 11:20 Discharged to Home. Impression: Cough, Bronchitis, not specified as acute or chronic, Abdominal and pelvic pain - secondary to coughing. - Condition is Stable. - Discharge Instructions: Acute Bronchitis, [id number], Abdominal Pain, Adult, [id number], Cough, Adult, Cbga-[id number]. - Prescriptions for Tessalon Perles 100 mg Oral Capsule - take 1 capsule by ORAL route every 8 hours As needed; 15 capsule. Tramadol 50 mg Oral Tablet - take 1 tablet by ORAL route every 8 hours as needed; 12 tablet. Zithromax Z- Phill 250 mg Oral Tablet - take 1 tablet by ORAL route as directed for 5 days Day 1 - take two (2) tablets one time. Day 2, 3, 4 , 5 take one (1) tablet once daily.; 6 tablet. Albuterol Sulfate 90 mcg/actuation - inhale 1-2 puff by INHALATION route every 4-6 hours; 1 Inhaler. - Medication Reconciliation Form, Thank You Letter, Antibiotic Education, Prescription Opioid Use form. - Follow up: Private Physician; When: 2 - 3 days; Reason: If symptoms return, Further diagnostic work-up, Recheck today's complaints, Continuance of care, Re-evaluation by your physician. - Problem is new. - Symptoms have improved. Signatures: Dispatcher [employer] EDIA Jeffrey Montoya MD MD kdr Vijay Tilley RN RN jl7 Mikie Galdamez RN RN ae4 Corrections: (The following items were deleted from the chart) 11:39 11:20 05/15/2019 11:20 Discharged to Home. Impression: Cough; Bronchitis, not specified ae4 as acute or chronic; Abdominal and pelvic pain - secondary to coughing. Condition is Stable. Forms are Medication Reconciliation Form, Thank You Letter, Antibiotic Education, Prescription Opioid Use. Follow up: Private Physician; When: 2 - 3 days; Reason: If symptoms return, Further diagnostic work-up, Recheck today's complaints, Continuance of care, Re-evaluation by your physician. Problem is new. Symptoms have improved. kdr
--- NOTE | 2019-05-15 11:21 | ER ---
Nurse's Notes [facility] Name: Celi Ortez Age: 39 yrs Sex: Female : 1980 Arrival Date: 05/15/2019 Time: 08:51 Bed 6 Private MD: Diagnosis: Cough;Bronchitis, not specified as acute or chronic;Abdominal and pelvic pain-secondary to coughing Presentation: 05/15 09:06 Presenting complaint: Patient states: Cough and congestion started Thursday morning, c/o jl7 bilateral rib pain from coughing. Transition of care: patient was not received from another setting of care. Onset of symptoms was May 13, 2019. Risk Assessment: Do you want to hurt yourself or someone else? Patient reports no desire to harm self or others. Initial Sepsis Screen: Does the patient meet any 2 criteria? No. Patient's initial sepsis screen is negative. Does the patient have a suspected source of infection? No. Patient's initial sepsis screen is negative. Care prior to arrival: None. 09:06 Method Of Arrival: Ambulatory jl7 09:06 Acuity: AMY 4 jl7 Triage Assessment: 09:08 General: Appears in no apparent distress. uncomfortable, Behavior is calm, cooperative, jl7 appropriate for age. Pain: Complains of pain in diaphragm Pain currently is 7 out of 10 on a pain scale. Neuro: Level of Consciousness is awake, alert, obeys commands, Oriented to person, place, time, situation. Cardiovascular: Heart tones S1 S2 present Patient's skin is warm and dry. Rhythm is regular. Respiratory: Airway is patent Respiratory effort is even, unlabored, Respiratory pattern is regular, symmetrical, Breath sounds are clear bilaterally. Derm: Skin is pink, warm \T\ dry. MANAGER CHANGE: 09:08 LMP 05/10/2019 jl7 Historical: - Allergies: 09:08 No Known Allergies; jl7 - Home Meds: 09:08 None [Active]; jl7 - PMHx: 09:08 COLLAPSED LUNG; MRSA; scoliosis; staph; jl7 - PSHx: 09:08 Tubal ligation; chest tube; jl7 - Immunization history:: Adult Immunizations not up to date. - Social history:: Smoking status: Patient uses tobacco products, smokes one pack cigarettes per day. - Ebola Screening: : No symptoms or risks identified at this time. Screenin:30 Abuse screen: Denies threats or abuse. Denies injuries from another. Nutritional jl7 screening: No deficits noted. Tuberculosis screening: No symptoms or risk factors identified. 11:37 Fall Risk None identified. ae4 Assessment: 09:10 General: see triage assessment. jl7 10:25 Reassessment: Patient appears in no apparent distress at this time. No changes from jl7 previously documented assessment. Patient and/or family updated on plan of care and expected duration. Pain level reassessed. 10:53 Reassessment: Patient appears in no apparent distress at this time. Patient states ae4 feeling better. 11:37 Reassessment: Patient appears in no apparent distress at this time. Patient ambulated ae4 down leal to nurse's station with steady gait, pt states her mother is waiting for her in the lobby to give her a ride home. Patient states feeling better. Vital Signs: 09:08 BP 107 / 63; Pulse 97; Resp 17 S; Temp 97.8(O); Pulse Ox 100% on R/A; Weight 52.16 kg jl7 (R); Height 5 ft. (152.40 cm) (R); Pain 7/10; 10:24 BP 101 / 57; Pulse 68; Resp 16 S; Pulse Ox 97% on R/A; jl7 11:37 BP 97 / 55; Pulse 81; Resp 17; Pulse Ox 97% on R/A; ae4 09:08 Body Mass Index 22.46 (52.16 kg, 152.40 cm) jl7 ED Course: 08:51 Patient arrived in ED. mr 08:58 Jeffrey Montoya MD is Attending Physician. kdr 09:06 Vijay Tilley RN is Primary Nurse. jl7 09:07 Triage completed. jl7 09:08 Arm band placed on right wrist. jl7 09:10 Patient has correct armband on for positive identification. Placed in gown. Bed in low jl7 position. Call light in reach. Side rails up X 1. Pulse ox on. NIBP on. 09:41 CXR XRAY In Process Unspecified. EDMS 11:39 No provider procedures requiring assistance completed. Patient did not have IV access ae4 during this emergency room visit. Administered Medications: 09:29 Drug: Tessalon Perle 200 mg Route: PO; ae4 10:15 Follow up: Response: No adverse reaction jl7 09:29 Drug: Tylenol #3 (300 mg-30 mg) 1 tablet Route: PO; ae4 10:15 Follow up: Response: No adverse reaction; Pain is decreased jl7 09:29 Drug: Flexeril 10 mg Route: PO; ae4 10:15 Follow up: Response: No adverse reaction; Pain is decreased jl7 10:55 Follow up: Response: Pain is decreased ae4 09:29 Drug: Ibuprofen 800 mg Route: PO; ae4 10:15 Follow up: Response: No adverse reaction; Pain is decreased jl7 10:55 Follow up: Response: Pain is decreased ae4 Outcome: 11:20 Discharge ordered by . kdr 11:39 Discharged to home ambulatory. ae4 11:39 Condition: stable 11:39 Discharge instructions given to patient, Instructed on discharge instructions, Demonstrated understanding of instructions, Prescriptions given X 4. 11:39 Patient left the ED. ae4 Signatures: Dispatcher [employer] EDMS Jeffrey Montoya MD MD kdr Rivera, Mary mr Leal, Jahala RN RN jl7 Mikie Galdamez RN RN ae4
[2019-05-15 11:45] VITALS: TEMP 97.8
[2019-05-15 11:47] VITALS: O2SAT 97
[2019-05-15 11:48] VITALS: BP 97/55
== END 2019-05-15 11:39 | disposition home or self-care (01) ==
LOC: ER 08:48
DX: J40 Bronchitis, not specified as acute or chronic (principal); R10.2 Pelvic and perineal pain; F17.210 Nicotine dependence, cigarettes, uncomplicated
CPT/HCPCS: 71045; 99284